=== PATIENT | female | born 1985 | race Caucasian/White ===

== ENCOUNTER 2021-10-24 13:21 | Outpatient (CLI) | payer BC, SELFPAY ==
--- NOTE | ~2021-10-24 | US_ITS ---
EXAMINATION: US pelvic complete w TV DATE: 10/24/2021 14:04 INDICATION: Pelvic pain Comparison:No prior studies for comparison. TECHNIQUE: Multiple transabdominal and endovaginal sonographic images of the pelvis performed. FINDINGS: The uterus measures 8.4 x 3.4 x 5.8 cm. The endometrial complex measures 9 mm. The right ovary measures 2.6 x 1.4 x 1.5 cm and the left ovary measures 2.7 x 1.9 x 2.3 cm. There ar e small follicles in each ovary. Normal doppler signal in both ovaries. There is free fluid in the pelvis. There are no abnormal masses seen on either side. IMPRESSION: 1. Unremarkable pelvic ultrasound. Reviewed, dictated and finalized at location A. D SPECIALIST
== END 2021-10-24 13:22 | disposition home or self-care (01) ==
LOC: CHSIMG 13:24
PROVIDERS: PCP Internal Medicine; Visit Provider Nurse Practitioner Family
DX: R10.2 Pelvic and perineal pain (principal)
CPT/HCPCS: 76830; 76856